=== PATIENT | female | born 2005 | race Caucasian/White ===

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

== ENCOUNTER 2025-03-20 09:36 | Outpatient (OUT) | payer OTHER, SELFPAY ==
--- OUTSIDE RECORDS SUMMARY | 2024-08-14 12:16 | XMS_ITS ---
Author Organization [facility] in [place] Address [address] [place] [address] Care Team Providers Care Printing Services Coordinator Name Role Phone Hamida Willard Primary Care Provider Results Component Value Reference Range Notes CBC AUTO DIFF Reviewed date:08/23/2024 04:16:34 PM Interpretation: Performing Lab: Notes/Report: [facility] , White Blood Count 6.3 4.0-11.0 10 3/uL Red Blood Count 4.40 4.20-5.40 10 6/uL Hemoglobin 14.0 12.0-16.0 g/dL Hematocrit 41.4 36.0-48.0 % Mean Corpuscular Volume 94.1 81.0-99.0 fL Mean Corpuscular Hemoglobin 31.8 26.7-34.0 pg Mean Corpuscular HGB Conc 33.8 29.9-35.2 g/dL Red Cell Distribution Width 11.7 11.0-15.0 % Platelet Count 263 150-450 10 3/uL Mean Platelet Volume 10.3 9.5-13.5 fL Neutrophils Percent Auto 61.6 43.0-75.0 % Lymphocytes Percent Auto 27.6 20.5-60.0 % Monocytes Percent Auto 7.9 1.7-12.0 % Eosinophils Percent Auto 2.1 0.9-7.0 % Basophils Percent Auto 0.5 0.2-2.0 % Immature Granulocytes Pct Auto 0.3 0.0-0.5 % Neutrophils Absolute Auto 3.9 1.4-6.5 10 3/uL Lymphocytes Absolute Auto 1.7 1.2-3.8 10 3/uL Monocytes Absolute Auto 0.5 0.3-0.8 10 3/uL Eosinophils Absolute Auto 0.1 0.0-0.7 10 3/uL Basophils Absolute Auto 0.0 0.0-0.1 10 3/uL Immature Granulocytes Abs Auto 0.02 0.00-0.03 10 3/uL Performing Lab: see note ML - [facility] LB REASON FOR VISIT lab results Encounters Encounter Location Date Provider Diagnosis [facility] [address] [place] [address] 08/14/2024 Hamida Willard Abnormal finding of blood chemistry, unspecified R79.9 Assessments Encounter Date Diagnosis (ICD Code) Assessment Notes Treatment Notes Treatment Clinical Notes Section Notes 08/14/2024 Abnormal finding of blood chemistry, unspecified (ICD-10 - R79.9) Plan Of Treatment Pending Test Test Name Order Date THYROID PANEL (T4/TSH/FREE T3) Progress Notes * Carmen DEWITTDOB:2005 ( 19 yo F)Acc No.[id number]:08/14/2024 Patient: Carmen CANCINO :2005 A ge:19 Y S ex:Female Address:[address] [place] [id number] Subjective: * Chief Complaints: * L ab results * Medical History: * Surgical History: * Hospitalization/Major Diagno stic Procedure: * Medications: Objective: * Vitals: * Physical Examination: Assessment: * Assessment: 1. A bnormal finding of blood chemistry, unspecified - R79.9 (Primary) Plan: * Treatment: * Procedure Codes: * true * Date: Generated for Yuei pablito/Mireille/eTransmitting on: 0 03/20/2025 09:41 AM EDT
--- OUTSIDE RECORDS SUMMARY | 2024-08-23 12:11 | XMS_ITS ---
Author Organization [facility] in [place] Address [address] [place] [address] Care Team Providers Care Cigar Packer Name Role Phone Hamida Willard Primary Care Provider REASON FOR VISIT review labs Encounters Encounter Location Date Provider Diagnosis [address] [address] 08/23/2024 Hamida Willard Abnormal finding of blood chemistry, unspecified R79.9 Assessments Encounter Date Diagnosis (ICD Code) Assessment Notes Treatment Notes Treatment Clinical Notes Section Notes 08/23/2024 Abnormal finding of blood chemistry, unspecified (ICD-10 - R79.9) Plan Of Treatment Pending Test Test Name Order Date THYROID PANEL (T4/TSH/FREE T3) 5 Future Test Test Name Order Date THYROID PANEL (T4/TSH/FREE T3) 5 Progress Notes * INEZSun RamirezDOB:2005 ( 19 yo F)Acc No.[id number]:08/23/2024 Patient: Carmen CANCINO :2005 A ge:19 Y S ex:Female Address:[address] [place] [address] [place] [address] Subjective: * Chief Complaints: * R eview labs * Medical History: * Surgical History: * Hospitalization/Major Diagno stic Procedure: * Medications: Objective: * Vitals: * Physical Examination: Assessment: * Assessment: 1. A bnormal finding of blood chemistry, unspecified - R79.9 (Primary) Plan: * Treatment: * Procedure Codes: * true * Date: Generated for Aisha kenney/Mireille/Casey on: 0 03/20/2025 09:41 AM EDT
--- OUTSIDE RECORDS SUMMARY | 2024-11-26 06:36 | XMS_ITS ---
Author Organization [facility] in [place] Address [address] [place] [address] Care Team Providers Care Race Board Attendant Name Role Phone Hamida Willard Primary Care Provider REASON FOR VISIT labs Encounters Encounter Location Date Provider Diagnosis [facility] [address] [place] [address] 11/26/2024 Hamida Willard Plan Of Treatment No Information Progress Notes * Carmen DEWITTDOB:2005 ( 19 yo F)Acc No.[id number]:11/26/2024 Patient: Carmen CANCINO :2005 A ge:19 Y S ex:Female Address:[address] [place] [id number] * true * Date: Generated for Aisha kenney/Luis Enriqueg/eTransmitting on: 0 03/20/2025 09:41 AM EDT
--- OUTSIDE RECORDS SUMMARY | 2025-03-20 09:54 | XMS_ITS | CCD ---
Author Organization [facility] Care Team Providers Care Assistant Cook Name Role Phone HOUSE, DR BOURGEOIS Admitting [...] 02-12-2022 BASO # 0.0 103/ul Normal 0.0-0.[address] [facility] Comment on above: Performed By: #### C BC #### [facility] [address] [address] [address] Micheal Riley Basophils/100 WBC (Bld) 0.8 % Normal 0.2-2.[address] [facility] Comment on above: Performed By: #### C BC #### [facility] [address] [place] [address] Dr. Micheal Riley EO # 0.0 103/ul Normal 0.0-0.7 [facility] Comment on above: Performed By: #### C BC #### [facility] [address] [address] [address] Micheal Riley Eosinophils/100 WBC (Bld) 0.8 % Critically low 0.9-7.0 [facility] Comment on above: Performed By: #### C BC #### [facility] [address] [place] [address] Dr. Micheal Riley Erythrocyte distribution width (RBC) [Ratio] 12.4 % Normal 11.0-15.[address] [facility] Comment on above: Performed By: #### C BC #### [facility] [address] [place] [address] Dr. Micheal Riley Hematocrit (Bld) [Volume fraction] 36.8 % Normal 36.0-48.[address] [facility] Comment on above: Performed By: #### C BC #### [facility] [address] [place] [address] Dr. Micheal Riley Hemoglobin (Bld) [Mass/Vol] 11.9 g/dL Critically low 12.0-16.[address] [facility] Comment on above: Performed By: #### C BC #### [facility] [address] [place] [address] Dr. Micheal Riley IG # 0.01 10e3/ul Normal 0.00-0.[address] [facility] Comment on above: Performed By: #### C BC #### [facility] [address] [place] [address] Dr. Micheal Riley IG % 0.2 % Normal 0.0-0.[address] [facility] Comment on above: Performed By: #### C BC #### [facility] [address] [place] [address] Dr. Micheal Riley LYMPH # 1.3 103/ul Normal 1.2-3.[address] [facility] Comment on above: Performed By: #### C BC #### [facility] [address] [place] [address] Dr. Micheal Riley Lymphocytes/100 WBC (Bld) 24.2 % Normal 20.5-60.[address] [facility] Comment on above: Performed By: #### C BC #### [facility] [address] [place] [address] Dr. Micheal Riley MANUAL DIFF REQ NO Normal [facility] Comment on above: Performed By: #### C BC #### [facility] [address] [place] [address] Dr. Micheal Riley MCH (RBC) [Entitic mass] 28.5 pg Normal 26.7-34.[address] [facility] Comment on above: Performed By: #### C BC #### [facility] [address] [place] [address] Dr. Micheal Riley MCHC (RBC) [Mass/Vol] 32.3 g/dL Normal 29.9-35.2 [facility] Comment on above: Performed By: #### C BC #### [facility] [address] [place] [address] Dr. Micheal Riley MCV (RBC) [Entitic vol] 88.2 fL Normal 79.1-95.6 [facility] Comment on above: Performed By: #### C BC #### [facility] [address] [place] [address] Dr. Micheal Riley MONO # 0.4 103/ul Normal 0.3-0.8 [facility] Comment on above: Performed By: #### C BC #### [facility] [address] [place] [address] Dr. Micheal Riley Monocytes/100 WBC (Bld) 8.0 % Normal 1.7-12.0 [facility] Comment on above: Performed By: #### C BC #### [facility] [address] [place] [address] Dr. Micheal Riley NEUT # 3.5 103/ul Normal 1.4-6.5 [facility] Comment on above: Performed By: #### C BC #### [facility] [address] [place] [address] Dr. Micheal Riley Neutrophils/100 WBC (Bld) 66.0 % Normal 43.0-75.0 [facility] Comment on above: Performed By: #### C BC #### [facility] [address] [place] [address] Dr. Micheal Riley Platelet mean volume (Bld) [Entitic vol] 9.9 fL Normal 9.5-13.5 [facility] Comment on above: Performed By: #### C BC #### [facility] [address] [place] [address] Dr. Micheal Riley PLT 300 103/ul Normal 150-450 [facility] Comment on above: Performed By: #### C BC #### [facility] [address] [place] [address] Dr. Micheal Riley RBC 4.17 106/ul Normal 3.40-5.[address] [facility] Comment on above: Performed By: #### C BC #### [facility] [address] [place] [address] Dr. Micheal Riley WBC 5.2 103/ul Normal 4.0-11.[address] [facility] Comment on above: Performed By: #### C BC #### [facility] [address] [place] [address] Dr. Micheal Riley IRONon 02-12-2022 Iron [Mass/Vol] 66.0 ug/dL Normal 50.0-170.0 [facility] Comment on above: Performed By: #### I CHARANJIT, B12FOL #### [facility] [address] [place] [address] Dr. Micheal Riley PROF 14(COMP METB)on 022 Albumin [Mass/Vol] 3.9 g/dL Normal 3.4-5.0 [facility] Comment on above: Performed By: #### C MP, TSH, T4 #### [facility] [address] [place] [address] Dr. Micheal Riley Albumin/Globulin [Mass ratio] 1.1 {ratio} Normal [facility] Comment on above: Performed By: #### C MP, TSH, T4 #### [facility] [address] [place] [address] Dr. Micheal Riley ALP [Catalytic activity/Vol] 57 U/L Critically low 65-260 [facility] Comment on above: Performed By: #### C MP, TSH, T4 #### [facility] [address] [place] [address] Dr. Micheal Riley ALT [Catalytic activity/Vol] 14 U/L Normal 14-59 [facility] Comment on above: Performed By: #### C MP, TSH, T4 #### [facility] [address] [place] [address] Dr. Micheal Riley Anion gap [Moles/Vol] 11.3 mmol/L Normal [facility] Comment on above: Performed By: #### C MP, TSH, T4 #### [facility] [address] [address] [address] Micheal Riley AST [Catalytic activity/Vol] 9 U/L Critically low 15-37 [facility] Comment on above: Performed By: #### C MP, TSH, T4 #### [facility] [address] [address] [address] Micheal Riley Bilirubin [Mass/Vol] 1.1 mg/dL Critically high 0.2-1.[address] [facility] Comment on above: Performed By: #### C MP, TSH, T4 #### [facility] [address] [address] [address] Micheal Riley Calcium [Mass/Vol] 9.3 mg/dL Normal 8.5-10.1 [facility] Comment on above: Performed By: #### C MP, TSH, T4 #### [facility] [address] [address] [address] Micheal Riley Chloride [Moles/Vol] 106 mmol/L Normal 98-[address] [facility] Comment on above: Performed By: #### C MP, TSH, T4 #### [facility] [address] [address] [address] Micheal Riley CO2 [Moles/Vol] 26.8 mmol/L Normal 21.0-32.0 [facility] Comment on above: Performed By: #### C MP, TSH, T4 #### [facility] [address] [address] [address] Micheal Riley Creatinine [Mass/Vol] 0.79 mg/dL Normal 0.55-1.[address] [facility] Comment on above: Performed By: #### C MP, TSH, T4 #### [facility] [address] [address] [address] Micheal Riley Globulin (S) [Mass/Vol] 3.6 g/dL Normal [facility] Comment on above: Performed By: #### C MP, TSH, T4 #### [facility] [address] [address] [address] Micheal Riley Glucose [Mass/Vol] 105 mg/dL Normal 74-106 [facility] Comment on above: Performed By: #### C MP, TSH, T4 #### [facility] [address] [place] [address] Dr. Micheal Riley Potassium [Moles/Vol] 4.1 mmol/L Normal 3.5-5.[address] [facility] Comment on above: Performed By: #### C MP, TSH, T4 #### [facility] [address] [place] [address] Dr. Micheal Riley Protein [Mass/Vol] 7.5 g/dL Normal 6.4-8.2 [facility] Comment on above: Performed By: #### C MP, TSH, T4 #### [facility] [address] [place] [address] Dr. Micheal Riley Sodium [Moles/Vol] 140 mmol/L Normal 136-145 [facility] Comment on above: Performed By: #### C MP, TSH, T4 #### [facility] [address] [place] [address] Dr. Micheal Riley Urea nitrogen [Mass/Vol] 18.0 mg/dL Normal 6.4-19.3 [facility] Comment on above: Performed By: #### C MP, TSH, T4 #### [facility] [address] [place] [address] Dr. Micheal Riley Urea nitrogen/Creatinine [Mass ratio] 22.8 mg/mg Normal [facility] Comment on above: Performed By: #### C MP, TSH, T4 #### [facility] [address] [place] [address] Dr. Micheal Riley T4on 02-12-2022 T4 [Mass/Vol] 7.80 ug/dL Normal 5.40-10.60 [facility] Comment on above: Performed By: #### C MP, TSH, T4 #### [facility] [address] [place] [address] Dr. Micheal Riley TSHon 02-12-2022 TSH 2.206 uIU/mL Normal 0.516-4.130 [facility] Comment on above: Performed By: #### C MP, TSH, T4 #### [facility] [address] [place], [place] [address] Dr. Micheal Riley VIT B12 AND FOLATEon 022 Cobalamin (Vitamin B12) [Mass/Vol] 344.0 pg/mL Normal 193.0-986.[address] [facility] Comment on above: Performed By: #### I CHARANJIT, B12FOL #### [facility] [address] [place], [place] [address] Dr. Micheal Riley FOLATE 8.00 ng/mL Critically low 8.60-58.90 [facility] Comment on above: Performed By: #### I CHARANJIT, B12FOL #### [facility] [id number] Micheal Riley Encounters Encounter Date Encounter Type Care Provider Facility Start: 02-12-2022 End: [address] CHRISTELLE GIVENS Facility: Payers Date Payer Category Payer Unknown [id number] 1959 Private Health Insurance [id number] 1959 Unknown [id number] Summary Purpose Family History No Family History Records Found Advance Directives No Advanced Directives Records Found Additional Source Comments INFORMATION SOURCE (unrecogn ized section and content) DATE CREATED AUTHOR 06/23/2022 [facility] FOR RECORDS PERTAINING TO PATIENTS WHO ARE [...] BE BASED ON THE PRIMARY CLINICAL RECORDS. [employer]. provides no warranty or guarantee of the accuracy or completeness of information in this document.
[2025-03-20 10:48] LABS: Free T3 3.26 pg/mL (2.18-3.98); Thyroid Stimulating Hormone 1.653 uIU/mL (0.358-3.740)
== END 2025-03-20 09:37 | disposition home or self-care (01) ==
LOC: LAB 09:39
PROVIDERS: PCP Nurse Practitioner Family; Visit Provider Nurse Practitioner Family
DX: R79.9 Abnormal finding of blood chemistry, unspecified (principal)
CPT/HCPCS: 36415; 84436; 84443; 84481